=== PATIENT | male | born 1980 | race Two or more races ===

== ENCOUNTER 2020-10-01 19:52 | Emergency (ER) | payer MEDICAID ==
[~2020-10-01] VITALS: Ht 167.6 cm; Wt 72.6 kg
[2020-10-01 20:15] VITALS: BP 145/85
[2020-10-01 20:18] VITALS: BP 134/87
--- NOTE | 2020-10-01 20:20 | NUR ---
ED Nurse Note: Patient walked into the ED with c/o abdominal pain onset 2 days ago. Pain is 6/10, at mid epigastric area, doesnt radiate, happens after eating. Patient denies CP/SOB/, N/V/D, fever/ chills, trauma/injury. Patient is AAOx4 and ambulatory. VSS as documented
--- NOTE | 2020-10-01 20:30 | NUR ---
ED Nurse Note: ERPA at bedside
--- NOTE | 2020-10-01 20:45 | NUR ---
ELOPEMENT: Pt asked to use the restroom and went out of the ED and never came back. PT has no IV access. ERMD notified
--- NOTE | 2020-10-01 20:56 | Emergency Room Report ---
History of Present Illness General Chief Complaint: Abdominal Pain Source: Patient Present Illness HPI 40-year-old male with no significant past medical history here complaining of several weeks of epigastric pain with few bouts of nonbloody emesis which usually occurs 30 minutes after eating. Patient reports that he drinks alcohol 3 or 4 times a week and eats a lot of spicy acidic food. Also complains of acid reflux. Denies any flatulence, diarrhea, constipation, bloody stools. Denies chest pain, shortness of breath, headache and dizziness. Denies cough and congestion. Reports that he also smokes cigarettes however denies other drug use. Reports that today he had no bouts of vomiting and no abdominal pain however came in to" have it checked out." Allergies: Coded Allergies: No Known Allergies (Unverified , 10/01/20) COVID-19 Screening Contact w/high risk pt: No Experienced COVID-19 symptoms?: No COVID-19 Testing performed NUCLEAR SECURITY OFFICER: No COVID-19 Screening: Negative COVID-19 Patient History Past Medical History: see triage record Past Surgical History: none Pertinent Family History: none Social History: Reports: smoking, alcohol use Immunizations: UTD Reviewed Nursing Documentation: PMH: Agreed; PSxH: Agreed Nursing Documentation-PMH Past Medical History: No Stated History Review of Systems All Other Systems: negative except mentioned in HPI Physical Exam Vital Signs Date Time Temp Pulse Resp B/P (MAP) Pulse Ox O2 Delivery O2 Flow Rate FiO2 10/01/20 20:18 98.1 85 20 134/87 (103) 98 Sp02 EP Interpretation: reviewed, normal General Appearance: no apparent distress, alert, GCS 15, non-toxic Head: normocephalic, atraumatic Eyes: bilateral eye normal inspection, bilateral eye PERRL ENT: hearing grossly normal, normal pharynx, no angioedema, normal voice Neck: full range of motion, supple/symm/no masses Respiratory: lungs clear, normal breath sounds, no rhonchi, no respiratory dist ress Cardiovascular #1: regular rate, rhythm, no edema Gastrointestinal: normal bowel sounds, non tender, soft, no mass, no organomegaly, no peritonitis, no bruit, non-distended Rectal: deferred Genitourinary: no CVA tenderness Musculoskeletal: back normal Neurologic: alert, motor strength/tone normal, oriented x3, sensory intact, responsive, speech normal Psychiatric: judgement/insight normal, memory normal, mood/affect normal, no suicidal/homicidal ideation Skin: no rash Lymphatic: no adenopathy Medical Decision Making PA Attestation All my diagnosis and treatment plans were reviewed ad discussed with my supervising physician Dr. Mendez Diagnostic Impression: Primary Impression: Gastritis ER Course 40-year-old male with no significant past medical history here complaining of several weeks of epigastric pain with few bouts of nonbloody emesis which usually occurs 30 minutes after eating. Patient reports that he drinks alcohol 3 or 4 times a week and eats a lot of spicy acidic food. Also complains of acid reflux. Denies any flatulence, diarrhea, constipation, bloody stools. Denies c hest pain, shortness of breath, headache and dizziness. Denies cough and congestion. Reports that he also smokes cigarettes however denies other drug use. Reports that today he had no bouts of vomiting and no abdominal pain however came in to" have it checked out." Ddx considered but are not limited to: appendicitis, cholecystis, gastritis, gastroenteritis, UTI, pyelonephritis, SBO, pancreatitis Vital signs: are WNL, pt. is afebrile H&PE are most consistent with: Gastritis, possible gastric ulcer ORDERS: CBC, CMP, lipase, UA, tox screen, EtOH serum level, Pepcid, Zofran, dicyclomine ED INTERVENTIONS: NS bolus, Pepcid, Zofran, Toradol At this time I do not believe further imaging needed patient abdomen is nonrigid and patient symptoms present with gastritis possible gastric ulcer patient is to follow-up with data services developer for possible endoscopy. DISCHARGE: At this time pt. is stable for d/c to home. Will provide printed patient care instructions, and any necessary prescriptions. Care plan and follow up instructions have been discussed with the patient prior to discharge. Avoid eating spicy acidic food, with drinking alcohol tobacco smoke, follow-up with data services developer for endoscopy, if worsening symptoms return to the emergency room is a possibility of gastric versus peptic ulcer as you have symptoms after eating. Patient eloped before blood draw and medication administration Last Vital Signs Date Time Temp Pulse Resp B/P (MAP) Pulse Ox O2 Delivery O2 Flow Rate FiO2 10/01/20 20:18 98.1 85 20 134/87 (103) 98 Disposition: ELOPED Condition: Stable Referrals: NOT CHOSEN IPA/MD,REFERRING (PCP) Patient Instructions: Gastritis, Adult, Qeys-mg-Mptp Additional Instructions: Avoid eating spicy acidic food, with drinking alcohol tobacco smoke, follow-up with data services developer for endoscopy, if worsening symptoms return to the emergency room is a possibility of gastric versus peptic ulcer as you have symptoms after eating. Silas Tucker Oct 01, 2020 20:56
[2020-10-01] MEDS ORDERED: Ketorolac 30mg Inj IV ONE (21:00)
== END 2020-10-01 20:45 | disposition left against medical advice (07) ==
LOC: EMR 20:18
DX: K29.70 Gastritis, unspecified, without bleeding (principal); Z72.89 Other problems related to lifestyle; F17.200 Nicotine dependence, unspecified, uncomplicated
CPT/HCPCS: 96374; 96375; Z7502; 99284